=== PATIENT | female | born 1945 | race Caucasian/White ===

== ENCOUNTER → 2016-07-28 | Outpatient (CLI) | payer OTHER ==
[2015-06-20 12:02] VITALS: BP 135/80
--- NOTE | 2016-07-31 11:47 | MG ---
HISTORY: SCREENING Comparison: December 19, 2012 FINDINGS: Bilateral CC and MLO projections of the right and left breast were obtained. Scattered fibroglandul ar tissue is seen to be present without significant interval change. No suspicious architectural di stortion, mass or clustered microcalcifications can be observed to suggest malignancy. No skin thic kening or nipple retraction is appreciated. No pathological lymphadenopathy can be identified. Robert ign-appearing calcifications are noted within the right and left breast. IMPRESSION: NO RADIOGRAPHIC EVIDENCE OF MALIGNANCY. ACR CATEGORY 2 - benign findings. FOLLOW-UP EXAM 1 YEAR. Diagnostic CAD was utilized and reviewed. * 0 (ZERO) - ASSESSMENT INCOMPLETE; ADDITIONAL IMAGING IS NEEDED. * 1/1 (ONE) - NEGATIVE. * 2/II (TWO) - BENIGN FINDINGS. * 3/III (THREE) - PROBABLY BENIGN FINDING; SHORT INTERVAL FOLLOW-UP SUGGESTED. * 4/IV (FOUR) - SUSPICIOUS ABNORMALITY; BIOPSY SHOULD BE CONSIDERED. * 5/V (FIVE) - HIGHLY SUSPICIOUS OF MALIGNANCY; BIOPSY SHOULD BE PERFORMED. A NEGATIVE X-RAY REPORT SHOULD NOT DELAY BIOPSY IF A DOMINANT OR CLINICALLY SUSPICIOUS MASS IS PRESENT; 4 TO 8 PERCENT OF CANCERS ARE NOT IDENTIFIED BY X-RAY. A NEG ATIVE REPORT MAY REINFORCE THE CLINICAL IMPRESSION. ADENOSIS AND DENSE BREASTS MAY OBSCURE AN UNDER LYING NEOPLASM. Reported By:
== END ==
LOC: RAD 08:44
PROVIDERS: ATTEND Internal Medicine
DX: Z12.31 Encounter for screening mammogram for malignant neoplasm of breast (principal)
CPT/HCPCS: 77067

== ENCOUNTER 2016-09-10 07:21 | Day surgery (SDC) | payer OTHER ==
[2016-09-10] MEDS ORDERED: D5 LR 1000 ML 1,000 ML IV ONE (07:26)
[2016-09-10] MEDS ORDERED: DIPRIVAN VIAL 20 ML ONE (08:19)
[2016-09-10 08:47] VITALS: BP 142/69
== END 2016-09-10 08:51 | disposition home or self-care (01) ==
LOC: SURG1 07:21
PROVIDERS: ATTEND Internal Medicine Gastroenterology
PROC: 0DJD8ZZ Inspection of Lower Intestinal Tract, Via Natural or Artificial Opening Endoscopic (ICD-10-PCS; principal; 2016-09-10 09:00)
DX: Z12.11 Encounter for screening for malignant neoplasm of colon (principal); K57.30 Diverticulosis of large intestine without perforation or abscess without bleeding; K64.0 First degree hemorrhoids
CPT/HCPCS: 99100; A4217; J3490; J7120

== ENCOUNTER 2017-07-21 20:55 | Emergency (ER) | payer OTHER ==
[2017-07-21 21:12] VITALS: BP 143/63; BMI 21.7
[2017-07-21] MEDS ORDERED: ADACEL TDaP IM ONE ×2 (21:20→21:21)
[2017-07-21] MEDS ORDERED: AUGMENTIN 500 MG/125 MG TAB PO ONE ×2 (21:42)
--- NOTE | 2017-07-21 21:43 | DR.GENAD ---
HPI - PCP Primary Care Physician: NFD - Complaint/Symptoms Chief Complaint Doctors Comments: Patient was at the veternarian today and was bitten by her cat on the right wrist. The area is warm to touch; she was advised to come to the ED for medication. Chief Complaint:: PT'S CAT BITE HER ON THE RT WRIST. THE CAT WAS COMING OUT FROM UNDER SEDATION - Source History Provided: Patient - Mode of Arrival Mode of Arrival: Ambulatory - Timing Onset of Chief Complaint: 07/21/17 PMH - PMH Past Medical History: No Past Surgical History: Yes Surgical History: SANDER MACHINE Surgery, Hysterectomy Past Surgical History Comment: BILAT SHOULDER - Family History History of Family Medical Conditions: No - Social History Does any household member use tobacco: No Alcohol Use: None Do you use any recreational Drugs:: No Lives With: Family Lives Where: Home - infectious screening In the last 2 months have you had wt loss of >10#?: NO Have you had fever, night sweats or hemotysis?: No Have you traveled outside the country in the last 6 months?: No Isolation: Standard ROS - Review of Systems Eyes: No Symptoms Reported ENTM: No Symptoms Reported Respiratoy: No Symptoms Reported Cardiovascular: No Symptoms Reported Gastrointestinal/Abdominal: No Symptoms Reported Genitourinary: No Symptoms Reported Neurological: No Symptoms Reported Musculoskeletal: See HPI, Wrist (warm to touch) Integumentary: Wound (cat bite right wrist) Hematologic/Lymphatic: No Symptoms Reported Endocrine: No Symptoms Reported Psychiatric: No Symptoms Reported All Other Systems: Reviewed and Negative PE - Vital Signs Vitals: Temperature 97.8 F Pulse Rate 78 Respiratory Rate 18 Blood Pressure 143/63 O2 Sat by Pulse Oximetry 98 - General General Appearance: Alert, In No Apparent Distress - Head Head Exam: Normal Inspection, Atraumatic - Eyes Eye exam: Normal Appearance, PERRL, EOMI - ENT ENT Exam: Normal Exam External Ear Exam: Normal External Inspection TM/Canal Exam: Bilateral Normal Nose Exam: Normal Nose Exam Mouth Exam: Normal Inspection Throat Exam: Normal Inspection - Neck Neck Exam: Normal Inspection, Full ROM - Chest Chest Inspection: Normal Inspection, Symmetric Chest Wall Rise - Respiratory Respiratory Exam: Normal Lung Sounds Bilat Respiratory Exam: Bilateral Clear to Auscultation - Cardiovascular Cardiovascular Exam: Regular Rate, Normal Rhythm - Abdominal Exam Abdominal Exam: Normal Inspection, Normal Bowel Sounds Abdominal Tenderness: negative: RUQ, RLQ, LUQ, LLQ, Epigastrium, Suprapubic, Diffuse, Mild, Moderate, Severe, Other - Extremities Extremities Exam: Normal Inspection, Full ROM - Back Back Exam: Normal Inspection, Full ROM - Neurologic Neurological Exam: Alert, Oriented X3, CN II-XII Intact - Psychiatric Psychiatric Exam: Normal Affect - Skin Skin Exam: Warm, Dry, Erythema (erythema at bite site on right wrist.) - Diagnosis Discharge Problem: Cat bite Qualifiers: Encounter type: initial encounter Qualified Code(s): W55.01XA - Bitten by cat, initial encounter - Discharge Plan Condition: Stable Prescriptions: Amoxicillin/Potassium Clav [Augmentin 875-125 Tablet] 1 tab PO Q12H #20 tab - Follow ups/Referrals Follow ups/Referrals: NFD,None [Primary Care Provider] - 3 days - Instructions
[2017-07-21] MEDS ORDERED: AUGMENTIN 875 MG/125 MG TAB PO SCH (22:00)
--- NOTE | 2017-07-21 22:30 | RAD ---
Three views of the right wrist. Indication: Cat bite to wrist Findings: No acute fracture or dislocation within the right wrist. No radiopaque foreign body or loca lizing gas within the right wrist. There is mild dorsal soft tissue swelling noted. No degenerative c hange of the wrist joint. Impression: Mild soft tissue swelling within the right wrist without acute fracture, dislocation, sof t tissue gas or radiopaque foreign body. Reported By:
== END 2017-07-21 22:35 | disposition home or self-care (01) ==
LOC: ER 21:15
DX: S60.871A Other superficial bite of right wrist, initial encounter (principal); W55.01XA Bitten by cat, initial encounter
CPT/HCPCS: 73100; 90471; 99282